=== PATIENT | female | born 1990 | race Caucasian/White ===

== ENCOUNTER 2018-06-02 20:24 | Emergency (ER) | payer OTHER ==
[~2018-06-02] VITALS: Wt 72.6 kg
[2018-06-03] MEDS ORDERED: ACETAMINOPHEN 500 MG TAB PO STA (00:06)
--- NOTE | 2018-06-03 00:06 | ERD ---
ER Documentation Chief Complaint Chief Complaint MISCARRIAGE APR 21, STILL PASSING POC. PELVIC PAIN HPI This is a 27-year-old female presents to emerge department with complaints of vaginal bleeding. Stated that she was diagnosed with miscarriage about a month ago, went to her [facility] today, had an ultrasound and was informed that she still has products, and that she was sent here to emergency department. Patient stated that she changed 4 pads in the last 24 hours. LMP: 03/02/2018. M1. Denies headache, head injury, loss of consciousness, dizziness, neck pain, neck stiffness, throat pain, difficulty swallowing, difficulty breathing lying flat, shoulder pain, chest pain, back pain, abdominal pain, nausea, vomiting, constipation, diarrhea, urinary symptoms, or possibility being , loss of bowel and bladder control, trauma, injury, falls, difficulty walking due to pain, numbness or tingling sensation, calf pain, recent travel, recent major surgery in the last 3 weeks, calf pain, recent long travel, recent exposure to any illness, recent antibiotic use in the last 3 months, fever, chi lls, seizures. Past medical history: Surgical history: Social: Denies smoking, use of alcoholic beverages, use of illegal drugs. ROS All systems reviewed and are negative except as per history of present illness. Medications Home Meds Active Scripts Acetaminophen* (Tylophen*) 500 Mg Capsule, 1 CAP PO Q6H PRN for PAIN AND OR ELEVATED TEMP, #20 CAP Prov:SHARA BAIG 06/03/18 PMhx/Soc History of Surgery: No Anesthesia Reaction: No Hx Neurological Disorder: No Hx Respiratory Disorders: No Hx Cardiac Disorders: No Hx Psychiatric Problems: No Hx Miscellaneous Medical Probl: No Hx Alcohol Use: No Hx Substance Use: No Hx Tobacco Use: No Smoking Status: Never smoker Physical Exam Vitals Physical Exam Const: No acute distress Head: Atraumatic Eyes: Normal Conjunctiva ENT: Normal External Ears, Nose and Mouth. Neck: Full range of motion. No meningismus. Resp: Clear to auscultation bilaterally Cardio: Regular rate and rhythm, no murmurs Abd: Soft, non tender, non distended. Normal bowel sounds. Negative Holly sign. Negative Margaux sign (or test). Negative psoas sign. No CVA tenderness. Skin: No petechiae or rashes. Color appears normal for ethnicity. Back: No midline or flank tenderness Ext: No cyanosis, or edema Neur: Awake and alert. No neurological deficit. Psych: Normal Mood and Affect Result Diagram: 06/03/18 0058 06/03/18 0058 Results 24 hrs Laboratory Tests Test 06/03/18 00:20 06/03/18 00:58 Urine Color YELLOW Urine Clarity SLIGHTLY CLOUDY Urine pH 5.0 Urine Specific [place] 1.028 Urine Ketones TRACE mg/dL Urine Nitrite NEGATIVE mg/dL Urine Bilirubin NEGATIVE mg/dL Urine Urobilinogen 1+ mg/dL Urine Leukocyte Esterase NEGATIVE Violet/ul Urine Microscopic RBC > 182 /HPF Urine Microscopic WBC 3 /HPF Urine Squamous Epithelial Cells FEW /HPF Urine Bacteria FEW /HPF Urine Mucus MODERATE /HPF Urine Hemoglobin 3+ mg/dL Urine Glucose NEGATIVE mg/dL Urine Total Protein NEGATIVE mg/dl White Blood Count 5.7 10^3/ul Red Blood Count 4.38 10^6/ul Hemoglobin 13.4 g/dl Hematocrit 40.4 % Mean Corpuscular Volume 92.2 fl Mean Corpuscular Hemoglobin 30.6 pg Mean Corpuscular Hemoglobin Concent 33.2 g/dl Red Cell Distribution Width 12.0 % Platelet Count 146 10^3/UL Mean Platelet Volume 11.6 fl Immature Granulocytes % 0.400 % Neutrophils % 56.2 % Lymphocytes % 35.1 % Monocytes % 7.4 % Eosinophils % 0.5 % Basophils % 0.4 % Nucleated Red Blood Cells % 0.0 /100WBC Immature Granulocytes # 0.020 10^3/ul Neutrophils # 3.2 10^3/ul Lymphocytes # 2.0 10^3/ul Monocytes # 0.4 10^3/ul Eosinophils # 0.0 10^3/ul Basophils # 0.0 10^3/ul Nucleated Red Blood Cells # 0.0 10^3/ul Sodium Level 141 mmol/L Potassium Level 4.2 mmol/L Chloride Level 102 mmol/L Carbon Dioxide Level 28 mmol/L Anion Gap 11 Blood Urea Nitrogen 11 mg/dl Creatinine 0.55 mg/dl Est Glomerular Filtrat Rate mL/min > 60 mL/min Glucose Level 93 mg/dl Calcium Level 9.6 mg/dl Total Bilirubin 0.7 mg/dl Direct Bilirubin 0.00 mg/dl Indirect Bilirubin 0.7 mg/dl Aspartate Amino Transf (AST/SGOT) 47 IU/L Alanine Aminotransferase (ALT/SGPT) 41 IU/L Alkaline Phosphatase 107 IU/L Total Protein 7.7 g/dl Albumin 4.6 g/dl Globulin 3.10 g/dl Albumin/Globulin Ratio 1.48 Lipase 58 U/L Beta HCG, Quantitative 18.3 mIU/ml Current Medications Medications Dose Sig/Raciel Start Time Status Last (Trade) Ordered Route PRN Stop Time Admin Dose Reason Admin 500 mg ONCE STAT 06/03/18 DC 06/03/18 Acetaminophen PO 00:06 00:49 (Tylenol 06/03/18 00:10 Tab) Procedures/MDM Diagnostic tests: Urinalysis: Reviewed. Culture urine: Sent. HCG quantitative: 18.3. Type and Rh: O-Positive. Blood works: Reviewed. OB ultrasound: 1. Nonviable intrauterine gestation/missed . 2. Bilateral adnexal cysts. No flow low up imaging is recommended. Seen and evaluated by OB, Dr. Lew. Patient refused to stay here at the hospital. Informed OB that she took Cytotec twice. Treatment: Tylenol p.o. Re-evaluation: Denies pelvic pain, vaginal bleeding. No signs of hemorrhaging. Vitals are unremarkable. Differential diagnosis I have low suspicion for hemorrhaging, sepsis, hemorrhagic shock, septic shock. Final diagnosis: Missed Prescription: Tylenol. Follow-up with PCP in the next 24-48 hours. Follow-up with [facility] in the next 24-48 hours. Come back here in the emergency department for any new symptoms or any worsening symptoms. All questions and concerns were answered. Patient and family members verbalized understanding and agreed with plan of care. Hemodynamically stable on discharge. Departure Diagnosis: Primary Impression: Missed Condition: Stable Additional Instructions: Follow-up with PCP in the next 24-48 hours. Follow-up with [facility] in the next 24-48 hours. Come back here in the emergency department for any new symptoms or any worsening symptoms. SHARA BAIG Jun 03, 2018 00:06
[2018-06-03] MEDS ORDERED: ACET500C5 PO (05:10)
--- NOTE | 2018-06-03 05:31 | CONS ---
Assessment/Plan Assessment/Plan Assessment/Plan (Daily) 27 y/o with missed /blighted ovum. Discussed options with patient including repeating cytotec with follow-up in clinic vs. D&C. R/B/A discussed, questions answered. Patient decided to repeat cytotec. Recommend taking 4 tabs (assuming 200mcg each) orallly since patient is bleeding and follow-up in clinic on Tuesday. Also recommend f/u US for ovarian cysts as outpatient.Patient unde rstands. Discharge home. Consultation Date/Type/Reason Admit Date/Time Date of Consultation: Jun 03, 2018 Reason for Consultation Missed , vaginal bleeding Date/Time of Note DATE: 06/03/18 TIME: 05:23 Hx of Present Illness 27 y/o with missed with blighted ovum diagnosed 1 month ago. Patient took cytotec 2 tabs orally but did not pass tissue. She was seen in clinic yesterday and given another dose of cytotec. She was also in the process of scheduling a D&C in 4 days but having issues with insurance. However, patient started to have bleeding, going through 4-5 pads/day, and cramping which brought her to ER. She picked up cytotec but has not taken it, instructed to place 2 tabs vaginally. Per HPI. Other systems negative. Past Medical History Medical History: no pertinent history Home Meds Active Scripts Acetaminophen* (Tylophen*) 500 Mg Capsule, 1 CAP PO Q6H PRN for PAIN AND OR ELEVATED TEMP, #20 CAP Prov:SHARA BAIG 06/03/18 Past Surgical History Past Surgical Hx: no surgical history Family History Significant Family History: no pertinent family hx Social History Alcohol Use: none Smoking Status: Never smoker Drug Use: none Exam/Review of Systems Exam Vitals Vital Signs Date Temp Pulse Resp B/P (MAP) Pulse Ox O2 O2 Flow FiO2 Time Delivery Rate 06/02/18 98.0 69 18 113/64 99 20:30 (80) Exam Gen: NAD HEENT: NCAT CV: RRR Pulm: CTAB Abd: soft, NT Ext: NT Pelvic: moderate blood in os, os closed on palpation Results Result Diagram: 06/03/188 06/03/18 0058 Results 24hrs Laboratory Tests Test 06/03/18 00:20 06/03/18 00:58 Urine Color YELLOW Urine Clarity SLIGHTLY CLOUDY A Urine pH 5.0 Urine Specific [place] 1.028 Urine Ketones TRACE A Urine Nitrite NEGATIVE Urine Bilirubin NEGATIVE Urine Urobilinogen 1+ H Urine Leukocyte Esterase NEGATIVE Urine Microscopic RBC > 182 H Urine Microscopic WBC 3 Urine Squamous Epithelial Cells FEW Urine Bacteria FEW A Urine Mucus MODERATE Urine Hemoglobin 3+ H Urine Glucose NEGATIVE Urine Total Protein NEGATIVE White Blood Count 5.7 Red Blood Count 4.38 Hemoglobin 13.4 Hematocrit 40.4 Mean Corpuscular Volume 92.2 Mean Corpuscular Hemoglobin 30.6 Mean Corpuscular Hemoglobin Concent 33.2 Red Cell Distribution Width 12.0 Platelet Count 146 Mean Platelet Volume 11.6 H Immature Granulocytes % 0.400 Neutrophils % 56.2 Lymphocytes % 35.1 Monocytes % 7.4 Eosinophils % 0.5 Basophils % 0.4 Nucleated Red Blood Cells % 0.0 Immature Granulocytes # 0.020 Neutrophils # 3.2 Lymphocytes # 2.0 Monocytes # 0.4 Eosinophils # 0.0 Basophils # 0.0 Nucleated Red Blood Cells # 0.0 Sodium Level 141 Potassium Level 4.2 Chloride Level 102 Carbon Dioxide Level 28 Anion Gap 11 Blood Urea Nitrogen 11 Creatinine 0.55 Est Glomerular Filtrat Rate mL/min > 60 Glucose Level 93 Calcium Level 9.6 Total Bilirubin 0.7 Direct Bilirubin 0.00 Indirect Bilirubin 0.7 Aspartate Amino Transf (AST/SGOT) 47 H Alanine Aminotransferase (ALT/SGPT) 41 Alkaline Phosphatase 107 Total Protein 7.7 Albumin 4.6 Globulin 3.10 Albumin/Globulin Ratio 1.48 Lipase 58 Beta HCG, Quantitative 18.3 Imaging Imaging Pelvic US: There is an abnormal intrauterine gestation with a gestational sac surrounded by a large amount of extra chorionic fluid. This fluid is anechoic. There is no pole. There is no yolk sac. There are numerous Nabothian cysts in the cervix. Both ovaries contain large simple cysts, 5.3 cm on the right, and 4.3 cm on the left. Thrombus is seen in the dependent portion of this cyst. PINKY MARTINEZ Jun 03, 2018 05:31
[2018-06-03 05:32] VITALS: BP 105/63; PULSE 74; RESP 18
== END 2018-06-03 05:33 | disposition home or self-care (01) ==
LOC: FTE 20:24
DX: O02.1 Missed abortion (principal); R10.2 Pelvic and perineal pain
CPT/HCPCS: 76801; 76817; 80053; 81001; 83690; 84702; 85025; 86900; 86901; 87086; Z7610

== ENCOUNTER 2018-06-29 06:59 | Day surgery (SDC) | payer OTHER ==
[2018-06-29] VITALS (12 sets, daily range): BP systolic 91–110; BP diastolic 39–67; PULSE 64–78; RESP 10–18; Ht 157.5 cm; Wt 72.4 kg
[~2018-06-29] VITALS: Ht 157.5 cm; Wt 72.4 kg
[~2018-06-29 06:59] MED LIST: ACET500C5 PO
[2018-06-29] MEDS ORDERED: DESFLURANE 15 MIN ONE (07:00)
--- NOTE | 2018-06-29 07:58 | PREAC ---
Date/Time of Note Date/Time of Note DATE: 06/29/18 TIME: 07:58 Anesthesia Eval and Record Evaluation Time Pre-Procedure Interview DATE: 06/29/18 TIME: 07:58 Age 27 Sex female NPO: 8 hrs Preoperative diagnosis missed Planned procedure suction D&C Past Medical History Past Medical History: None Surgery & Anesthesia Issues No known issue Meds Anticoagulation: No Beta Vazquez within 24 hr: No Reason Beta Vazquez not given: Pt. not on B-Vazquez Discontinued Scripts Acetaminophen* (Tylophen*) 500 Mg Capsule, 1 CAP PO Q6H PRN for PAIN AND OR NILS VATED TEMP, #20 CAP Prov:SHARA BAIG 06/03/18 Meds reviewed: Yes Allergies Coded Allergies: No Known Allergy (Unverified , 06/29/18) Allergies Reviewed: Yes Labs/Studies Labs Reviewed: Reviewed by anesthesiologist (labs from 3/) test: Negative Pre-procedure Exam Airway: Adequate mouth opening, Adequate thyromental dist Mallampati: Mallampati II Teeth: Normal Lung: Normal Heart: Normal ASA Physical Status ASA physical status: 1 Emergency: None Planned Anesthetic General/MAC: LMA Planned Pain Management Parenteral pain med, Local by surgeon Pre-operative Attestations Prior to commencing anesthesia and surgery, the patient was re-evaluated, there was verification of: *The patient's identity *The results of appropriate recent lab work and preoperative vital signs *The above evaluation not changing prior to induction *Anesthetic plan, risk benefits, alternative and complications discussed with patient/family; questions answered; patient/family understands, accepts and wishes to proceed. SLIME CHAU Jun 29, 2018 07:58
--- NOTE | 2018-06-29 08:27 | HP ---
Date/Time of Note Date/Time of Note DATE: 06/29/18 TIME: 08:21 Assessment/Plan VTE Prophylaxis SCD applied (from Ns): Yes Pharmacological prophylaxis: NA/contraindicated Pharm contraindication: low risk/ambulating Assessment/Plan Assessment/Plan Assessment: retained products of conception Plan: Dilation and Curettage Result Diagram: 06/29/18 0745 Results 24hrs Laboratory Tests Test 06/29/18 07:45 White Blood Count 5.2 Red Blood Count 4.55 Hemoglobin 13.8 Hematocrit 41.7 Mean Corpuscular Volume 91.6 Mean Corpuscular Hemoglobin 30.3 Mean Corpuscular Hemoglobin Concent 33.1 Red Cell Distribution Width 12.4 Platelet Count 137 L Mean Platelet Volume 11.7 H Immature Granulocytes % 0.200 Neutrophils % 65.8 Lymphocytes % 25.1 Monocytes % 8.1 Eosinophils % 0.6 Basophils % 0.2 Nucleated Red Blood Cells % 0.0 Immature Granulocytes # 0.010 Neutrophils # 3.4 Lymphocytes # 1.3 Monocytes # 0.4 Eosinophils # 0.0 Basophils # 0.0 Nucleated Red Blood Cells # 0.0 HPI/ROS Admit Date/Time Admit Date/Time 06/29/2018 Hx of Present Illness HISTORY OF PRESENT ILLNESS: 27 YO EAB 1 she has spontaneous miscarriage. ultrasound is suggestive of retained products of conception.She desires to have suction D&C. I discussed with the patient the risks, benefits, indications, and alternatives of procedure including but not limited to risks of infection, bleeding, damage to other organs, bowel, bladder, hernia formation, scar formation, possibility of blood transfusion, possible need for emergency hysterectomy. She was allowed to ask questions. All her questions were answered. Informed consent has been obtained. ROS Constitutional: no complaints, improved Eyes: no complaints ENT: no complaints Respiratory: no complaints Cardiovascular: no complaints Gastrointestinal: no complaints Genitourinary: no complaints Musculoskeletal: no complaints Skin: no complaints Neurologic: no complaints Endocrine: no complaints Lymphatic: no complaints Psychological: no complaints, nl mood/affect Immunologic: no complaints PMH/Family/Social Past Medical History Medical History: no pertinent history Coded Allergies: No Known Allergy (Unverified , 06/29/18) Past Surgical History Past Surgical Hx: no surgical history Family History Significant Family History: diabetes Social History Alcohol Use: none Smoking Status: Never smoker Drug Use: none Exam/Review of Systems Vital Signs Vitals Vital Signs Date Temp Pulse Resp B/P (MAP) Pulse Ox O2 O2 Flow FiO2 Time Delivery Rate 06/29/18 98.9 75 16 106/60 100 Room Air 07:59 (75) Exam Constitutional: alert, oriented, well developed Psych: no complaints, nl mood/affect Head: normocephalic, atraumatic Eyes: nl conjunctiva, EOMI, nl lids, nl sclera, PERRL ENMT: nl external ears & nose, nl lips & teeth, nl nasal mucosa & septum Neck: supple, non-tender Respiratory: clear to auscultation, normal air movement Cardiovascular: regular rate and rhythm, nl pulses Gastrointestinal: soft, nl liver, spleen, non-tender Musculoskeletal: nl extremities to inspection Extremities: normal pulses Neurological: MUSIC HISTORIAN II-XII intact, nl mental status, nl speech, nl strength Skin: nl turgor; No rash or lesions Lymph: nl lymph nodes MARY VILLANUEVA MD Jun 29, 2018 08:27
[2018-06-29] MEDS ORDERED: PROPOFOL 20 ML ONE (08:37)
[2018-06-29] MEDS ORDERED: LIDOCAINE 2% (SDV) 5 ML INJ ONE (08:37)
[2018-06-29] MEDS ORDERED: CEFAZOLIN 1 GM INJ ONE (08:37)
[2018-06-29] MEDS ORDERED: MIDAZOLAM 1 MG/ML 2 ML INJ ONE (08:37)
[2018-06-29] MEDS ORDERED: FENTAnyl 50 MCG/ML VIAL ONE (08:37)
[2018-06-29] MEDS ORDERED: ONDANSETRON 4 MG INJ ONE (08:44)
[2018-06-29] MEDS ORDERED: METOCLOPRAMIDE 10 MG INJ ONE (08:44)
[2018-06-29] MEDS ORDERED: FAMOTIDINE 20 MG INJ ONE (08:44)
[2018-06-29] MEDS ORDERED: DEXAMETHASONE 4 MG/ML 5 ML INJ ONE (08:44)
--- NOTE | 2018-06-29 09:09 | OPR ---
Date/Time of Note Date/Time of Note DATE: 06/29/18 TIME: 09:06 Operative Report Procedure Date: Jun 29, 2018 Preoperative Diagnosis Retained products of conception Postoperative Diagnosis same Operation/Procedure Performed Suction Dilation and Curettage Surgeon Clarita Payton MD District Operations Manager None Anesthesia Type: general Estimated Blood Loss: minimal Transfusion none Specimen Products of conception Grafts/Implants none Tubes/Drains none Complications none Pt Condition Post Procedure: stable Disposition: PACU Procedure Description The risks, benefits, indications, alternatives of procedure including, but not limited to risk of infection, bleeding, damage to other organs, bowel, bladder, hernia formation, scar formation, possibility of blood transfusions were discussed with the patient. She was allowed to ask questions. All her questions were answered. Informed consent was obtained. DESCRIPTION OF PROCEDURE: She was taken to the operating room. Spinal anesthesia was induced. She was prepped and draped in the usual dorsal lithotomy sterile fashion. Surgical time out one. Bimanual examination revealed uterus to be 8 weeks in size. Anterior segment of the cervix was grasped with single tooth tenaculum. The cervix was gradually dilated to size 7 Olive Dilators. Uterus was sounded to 7 cm. Suction curettage was done repeatedly until no further tissue was coming out. gentle sharp curettage was also done. Tenaculum was removed. there was no bleeding at the end of the procedure. Uterus sounded to 7 cm at the end of the procedure. patient tolerated the procedure well. CLARITA PAYTON MD Jun 29, 2018 09:09
--- NOTE | 2018-06-29 09:18 | PAC ---
Date/Time of Note Date/Time of Note DATE: 06/29/18 TIME: 09:17 Post-Anesthesia Notes Post-Anesthesia Note Last documented vital signs post 93/42 rr 14 spo2 100% temp 98.3 hr 93 Vital Signs Date Temp Pulse Resp B/P (MAP) Pulse Ox O2 O2 Flow FiO2 Time Delivery Rate 06/29/18 98.9 75 16 106/60 100 Room Air 07:59 (75) Activity: WNL Respiratory function: WNL Cardiovascular function: WNL Mental status: Baseline Pain reasonably controlled: Yes Hydration appropriate: Yes Nausea/Vomiting absent: Yes SLIME CHAU Jun 29, 2018 09:18
[2018-06-29] MEDS ORDERED: ONDANSETRON 4 MG INJ IV PRN (09:30)
[2018-06-29] MEDS ORDERED: FENTAnyl 50 MCG/ML VIAL IV PRN ×3 (09:30)
[2018-06-29] MEDS ORDERED: MEPERIDINE 25 MG INJ IV PRN (09:30)
[2018-06-29] MEDS ORDERED: OXYCODONE/ACETAMINOPHEN (5/325) TAB PO PRN ×2 (09:30)
== END 2018-06-29 10:55 | disposition home or self-care (01) ==
LOC: SDS 06:59
PROVIDERS: ATTEND Specialist
DX: O02.1 Missed abortion (principal); Z3A.08 8 weeks gestation of pregnancy
CPT/HCPCS: 59820; 80053; 85025; 85610; 85730; 88305; J0690; J1100; J2250; J2405; J2765; J3010